=== PATIENT | male | born 1935 | race African-American/Black ===

== ENCOUNTER 2018-02-23 07:39 | Outpatient (CLI) | payer OTHER ==
[~2018-02-23 07:39] MED LIST: AMLODIPINE BES2.5 MG PO; ATORVASTATIN CA20 MG PO; COZAAR50 MG PO; FOLIC ACID1 MG PO; GLIMEPIRIDE1 MG PO; GLYCOTROL CAPS1 EACH PO; METFORMIN HCL500 MG PO; PREDNISONE; STRESS FORMULA1 EACH PO; TAMS0.4C PO
== END 2018-02-23 14:21 | disposition home or self-care (01) ==
LOC: NUCLEAR 07:39
DX: C61 Malignant neoplasm of prostate (principal); C79.51 Secondary malignant neoplasm of bone
CPT/HCPCS: 78306; A9503

== ENCOUNTER → 2018-11-23 | Outpatient (CLI) | payer OTHER | END | disposition home or self-care (01) | LOC: NUCLEAR 15:34 | DX: I87.2 Venous insufficiency (chronic) (peripheral) (principal) ==

== ENCOUNTER 2018-12-01 07:31 | Outpatient (CLI) | payer OTHER | END 2018-12-01 13:18 | disposition home or self-care (01) | LOC: TOM 07:31 | DX: I89.0 Lymphedema, not elsewhere classified (principal); C61 Malignant neoplasm of prostate; C79.89 Secondary malignant neoplasm of other specified sites; L04.2 Acute lymphadenitis of upper limb | CPT/HCPCS: 71260; Q9965 ==

== ENCOUNTER 2018-12-25 09:17 | Inpatient (IN) | payer OTHER ==
[~2018-12-25] VITALS: Ht 30.5 cm; Wt 6.0 kg
[2018-12-25] MEDS ORDERED: ZYTIGA250 MG (09:38)
[2018-12-25] MEDS ORDERED: RAYOS5 MG (09:39)
[2018-12-25] MEDS ORDERED: LIPITOR20 MG (09:40)
[2018-12-25] MEDS ORDERED: LISINOPRIL5 MG (09:40)
[2018-12-25] MEDS ORDERED: XARELTO20 MG (09:40)
[2018-12-25] MEDS ORDERED: NEURIN (09:41)
[2018-12-25] MEDS ORDERED: SYSTANE ULTRA 010 ML (09:41)
[2018-12-25] MEDS ORDERED: ALPHAGAN P5 M2 (09:42)
--- NOTE | 2018-12-25 09:42 | NUR ---
SE RECIBE PTE ALERTA Y ORIENTADO X3,ACOMPANADO X SPARROW HIJA LA YUAN REFIERE QUE EL PTE ESTA CAMINADO DESE AYO CON DIFICULTAD ES PTE DE DR.MORALES NICOLAS ,LO REFIERE A LA FABIAN DE ER,PARA EVALUAR Y LE HAGAA UN CT DE ROLLY,PTE DE CANCER EN LA PROSTATA.
--- NOTE | 2018-12-25 09:51 | NUR ---
SE RECIBE PACIENTE EN GENNY.DESPIERTA ALERTO Y ORIENTADO.ESTA ACOMPANADA POR FAMILIAR.ES ORIENTADO SOBRE PROCEDIMIENTOS A LLEVARSE A CABO,LO CUAL REFIERE COMPRENDER
== END 2019-01-04 18:17 | disposition home or self-care (01) | DRG 300 ==
LOC: ER 09:17 → MEDJ 14:36 → SURH 14:36 → MEDJ 16:19
PROVIDERS: ADMIT Specialist
PROC: B020ZZZ Computerized Tomography (CT Scan) of Brain (ICD-10-PCS; principal; 2018-12-25)
PROC: B030ZZZ Magnetic Resonance Imaging (MRI) of Brain (ICD-10-PCS; 2018-12-25)
PROC: B345ZZZ Ultrasonography of Bilateral Common Carotid Arteries (ICD-10-PCS; 2018-12-28)
PROC: B348ZZZ Ultrasonography of Bilateral Internal Carotid Arteries (ICD-10-PCS; 2018-12-28)
PROC: 30233N1 Transfusion of Nonautologous Red Blood Cells into Peripheral Vein, Percutaneous Approach (ICD-10-PCS; 2018-12-29)
DX: I82.B12 Acute embolism and thrombosis of left subclavian vein (principal); C79.51 Secondary malignant neoplasm of bone; C78.1 Secondary malignant neoplasm of mediastinum; G45.8 Other transient cerebral ischemic attacks and related syndromes; N39.0 Urinary tract infection, site not specified; C61 Malignant neoplasm of prostate; T45.1X5A Adverse effect of antineoplastic and immunosuppressive drugs, initial encounter; R26.89 Other abnormalities of gait and mobility; I10 Essential (primary) hypertension; Z79.01 Long term (current) use of anticoagulants; D64.81 Anemia due to antineoplastic chemotherapy; B96.4 Proteus (mirabilis) (morganii) as the cause of diseases classified elsewhere
CPT/HCPCS: 70551

== ENCOUNTER 2019-04-21 10:12 | Inpatient (IN) | payer OTHER ==
[~2019-04-21] VITALS: Ht 185.4 cm; Wt 68.0 kg
[~2019-04-21 10:12] MED LIST changes: +ALPHAGAN P5 M2; +LIPITOR20 MG; +LISINOPRIL5 MG; +NEURIN; +RAYOS5 MG; +SYSTANE ULTRA 010 ML; +XARELTO20 MG; +ZYTIGA250 MG
[2019-04-21] MEDS ORDERED: PROTONIX (10:28)
[2019-04-21] MEDS ORDERED: XGEVA120 MG/1.7 SQ (10:29)
[2019-04-21] MEDS ORDERED: VITAMIN B-121000 MC4 PO (10:31)
[2019-04-23] MEDS ORDERED: PROTONIX40 MG (08:39)
== END 2019-04-23 14:54 | disposition other institution (70) | DRG 542 ==
LOC: ER 10:12 → SURH 19:02 → SEC-K 19:02 → SURH 20:19
PROVIDERS: ADMIT Specialist
PROC: BW40ZZZ Ultrasonography of Abdomen (ICD-10-PCS; principal; 2019-04-21)
PROC: 30233N1 Transfusion of Nonautologous Red Blood Cells into Peripheral Vein, Percutaneous Approach (ICD-10-PCS; 2019-04-21)
PROC: 8E0ZXY6 Isolation (ICD-10-PCS; 2019-04-21)
DX: C79.51 Secondary malignant neoplasm of bone (principal); D61.1 Drug-induced aplastic anemia; R57.1 Hypovolemic shock; I82.B12 Acute embolism and thrombosis of left subclavian vein; C78.7 Secondary malignant neoplasm of liver and intrahepatic bile duct; C78.89 Secondary malignant neoplasm of other digestive organs; C61 Malignant neoplasm of prostate; K86.81 Exocrine pancreatic insufficiency; D63.8 Anemia in other chronic diseases classified elsewhere; R97.21 Rising PSA following treatment for malignant neoplasm of prostate; E83.51 Hypocalcemia; R16.1 Splenomegaly, not elsewhere classified; I10 Essential (primary) hypertension; Z66 Do not resuscitate